=== PATIENT | male | born 2005 | race Caucasian/White ===

== ENCOUNTER 2024-07-31 20:05 | Emergency (ER) | payer BC ==
[~2024-07-31] VITALS: Ht 172.7 cm; Wt 47.5 kg
[2024-07-31 20:16] VITALS: O2SAT 100
[2024-07-31] MEDS: ACETAMINOPHEN 325MG TABLET PO ONE (20:55)
[2024-07-31 21:29] VITALS: BP 122/72; PULSE 81; RESP 15; TEMP 36.89184; O2SAT 100
== END 2024-07-31 21:36 | disposition home or self-care (01) ==
LOC: ER 20:05
DX: F41.9 Anxiety disorder, unspecified (principal); T50.905A Adverse effect of unspecified drugs, medicaments and biological substances, initial encounter; Y92.89 Other specified places as the place of occurrence of the external cause
CPT/HCPCS: 99282